=== PATIENT | male | born 2000 | race Caucasian/White ===

== ENCOUNTER 2020-10-15 21:10 | Emergency (ER) | payer BC, SELFPAY ==
[2020-10-15 21:15] VITALS: BP 130/87; PULSE 106; RESP 19; TEMP 36.8; O2SAT 100
--- NOTE | 2020-10-15 22:07 | ED.WOUNDLAC ---
HPI - Wound/Laceration General Chief Complaint: Wound/Laceration Stated Complaint: Left Finger Laceration Time Seen by Provider: 10/15/20 21:41 Source: patient Mode of arrival: ambulatory Limitations: no limitations History of Present Illness HPI narrative: This is a 20-year-old male that presents to the emergency department for a laceration sustained just prior to arrival. Reports he was trying to open some icy hot with scissors. Reports he sustained a laceration to the left second finger. He is up-to-date on tetanus. Denies decreased range of motion or numbness. Related Data Home Medications Medication Instructions Recorded Confirmed No Home Medications 10/15/20 10/15/20 Allergies Allergy/AdvReac Type Severity Reaction Status Date / Time No Known Allergies Allergy Verified 10/15/20 21:17 Review of Systems Review of Systems: Narrative: CONSTITUTIONAL: Denies fever SKIN: Reports laceration NEUROLOGIC: Denies numbness All systems reviewed & are unremarkable except as noted in HPI and below PMFSH Past Medical History Medical History (Updated 10/15/20 @ 23:00 by Tosin Schmidt PA-C) No active medical problems Social History Social History (Updated 10/15/20 @ 22:09 by Tosin Schmidt PA-C) Substance use: never Gender identity (if verbalized by the patient): Male Exam Narrative: Exam Narrative: GENERAL: Well-appearing, well-nourished, and in no acute distress. HEAD: Normocephalic, atraumatic. EYES: EOMI. EXTREMITIES: Normal range of motion. No edema. 1cm circular area of skin avulsed to the tip of the left 2nd finger, active oozing of blood SKIN: Warm, dry, no rash. NEURO: No focal deficits. Alert and oriented x3. PSYCH: Normal mood and affect Course Vital Signs Vital signs: Vital Signs Temperature 98.2 F 10/15/20 21:15 Pulse Rate 106 H 10/15/20 21:15 Respiratory Rate 19 10/15/20 21:15 Blood Pressure 130/87 10/15/20 21:15 Pulse Oximetry 100 10/15/20 21:15 Temperature 98.2 F 10/15/20 21:15 Pulse Rate 106 H 10/15/20 21:15 Respiratory Rate 19 10/15/20 21:15 Blood Pressure 130/87 10/15/20 21:15 Pulse Oximetry 100 10/15/20 21:15 Procedures Laceration Laceration 1: Date: 10/15/20 Time: 22:00 Site: hand Side (If applicable): left Size (cm): 1 Description: other (Skin avulsed) Depth: simple, single layer Pre-repair: irrigated ====== Skin Level ====== ====== Subcutaneous Layer ====== ====== Muscle Layer ====== ====== Tendon Layer ====== Dressing: Wound irrigated and bleeding controlled with Surgicel and bandaged MDM - Wound/Laceration MDM Narrative Medical decision making narrative: Patient presents the emergency department after a laceration today with a small area of skin avulsion to the tip of the left second finger. Patient does up-to-date on tetanus. Wound was irrigated and bleeding controlled with Surgicel. Wound was then bandaged. He was educated on wound care. He is to follow-up with primary care doctor. He was given warnings to return to the ER Critical Care Time Critical Care Time Critical Care Time: No Discharge Plan Discharge Clinical Impression: Avulsion of skin Patient Disposition: Home, Self-Care Condition: Stable Instructions: Skin Avulsion (ED) Additional Instructions: Return to the emergency department if you experience fever, redness or swelling of your wound, abnormal drainage from your wound, or any other symptoms that are concerning to you. Leave the bottom layer of gauze on until it falls off. Change the top bandage daily Follow-up with your primary care doctor for wound check Prescriptions: No Action No Home Medications RF: 0 Follow-up/Referrals: Zaida Gomez MD [Physician] - 1 Week PHYSICIAN,SCHOOL SPEECH THERAPIST [Primary Care Provider] -
== END 2020-10-15 23:17 | disposition home or self-care (01) ==
PROVIDERS: Emergency Provider Emergency Medicine
DX: S61.211A Laceration without foreign body of left index finger without damage to nail, initial encounter (principal); W27.2XXA Contact with scissors, initial encounter
CPT/HCPCS: 12001; 99282